=== PATIENT | female | born 1995 | race Caucasian/White ===

== ENCOUNTER → 2024-05-26 | Outpatient (REF) ==
[~2024-05-26] MED LIST: CETI-24 PO; FAMO1TAB11 PO; HYDR-3363 PO; METF-838 PO; NORE-30 PO; OLAN2.5T53 PO; PARO20TA3 PO; QUET50TA67 PO
[2024-05-30 17:03] LABS: QuantiFERON-TB Gold Plus NEGATIVE (NEGATIVE)
== END ==
LOC: M LAB 08:16
PROVIDERS: ATTEND Family Medicine
DX: Z00.00 Encounter for general adult medical examination without abnormal findings (principal)

== ENCOUNTER → 2024-07-07 | Outpatient (REF) | LOC: M EMP 08:51 | PROVIDERS: ATTEND Family Medicine | DX: Z11.52 Encounter for screening for COVID-19 (principal) ==

== ENCOUNTER → 2024-10-03 | Outpatient (REF) ==
[2024-10-03 12:22] LABS: SOFIA COVID ANTIGEN NEGATIVE (NEGATIVE)
== END ==
LOC: M EMP 11:01
PROVIDERS: ATTEND Family Medicine
DX: Z01.89 Encounter for other specified special examinations (principal)

== ENCOUNTER 2025-06-09 01:51 | Emergency (ER) | payer OTHER ==
[~2025-06-09] VITALS: Ht 157.5 cm; Wt 80.1 kg
[2025-06-09 03:10] LABS: PLATELET COUNT, AUTOMATED 195 10^3/uL (150-450)
[2025-06-09 03:33] LABS: AMPHETAMINES LEVEL URINE NEGATIVE (NEGATIVE); BARBITURATES URINE NEGATIVE (NEGATIVE); BENZODIAZEPINES URINE NEGATIVE (NEGATIVE); COCAINE METABOLITE URINE NEGATIVE (NEGATIVE); METHADONE URINE NEGATIVE (NEGATIVE); OPIATES URINE NEGATIVE (NEGATIVE); PHENCYCLIDINE URINE NEGATIVE (NEGATIVE)
[2025-06-09 03:34] LABS: CANNABINOIDS URINE NEGATIVE (NEGATIVE)
[2025-06-09 03:35] LABS: ETHYL ALCOHOL (ETHANOL) < 0.003 % (0.000-0.010)
[2025-06-09 03:37] LABS: CPK CREATINE PHOSPHOKINASE 35 U/L (34-145); SALICYLATE LEVEL < 3.0 MG/DL (<30)
[2025-06-09 03:38] LABS: ALT/SGPT 17 U/L (7.0-40); AST/SGOT 17 U/L (<34); CALCIUM LEVEL 9.2 MG/DL (8.5-10.1); CARBON DIOXIDE LEVEL 25 MMOL/L (20-31); CHLORIDE LEVEL 103 MMOL/L (98-107); CREATININE FOR GFR 0.47 MG/DL (0.55-1.30); GLOMERULAR FILTRATION RATE > 90.0 (>60); POTASSIUM SERUM 3.7 MMOL/L (3.5-5.1); SODIUM LEVEL 137 MMOL/L (136-145)
[2025-06-09] MEDS ORDERED: D 50CAP2 PO (06:17)
[2025-06-09] MEDS ORDERED: PNV,1TAB3 PO (06:17)
[2025-06-09] MEDS ORDERED: FERR325T82 PO (06:19)
[2025-06-09] MEDS ORDERED: B-12100010 PO (06:19)
[2025-06-09] MEDS ORDERED: HOME MED LIST COMPLETE! XX SCH (06:20)
[2025-06-09 06:53] VITALS: BP 106/65; TEMP 97.7; O2SAT 98
== END 2025-06-09 06:53 | disposition home or self-care (01) ==
LOC: EDBD 01:51 → M ED 01:51
DX: F41.9 Anxiety disorder, unspecified (principal); O99.343 Other mental disorders complicating pregnancy, third trimester; Z3A.31 31 weeks gestation of pregnancy; F32.A Depression, unspecified; F43.10 Post-traumatic stress disorder, unspecified